=== PATIENT | male | born 1950 | race Caucasian/White ===

== ENCOUNTER 2020-06-25 08:36 | Emergency (ER) | payer MEDICARE, OTHER ==
[2020-06-25] MEDS ORDERED: DUONEB 0.5-3 MG/3 ml Neb IH ONE (09:22)
[2020-06-25] MEDS ORDERED: Sodium Chloride 0.9% 1000 ML 1,000 ML IV SCH (09:30)
--- NOTE | 2020-06-25 09:34 | ERPHSYRPT ---
- History of Present Illness Time Seen by Provider: 06/25/20 09:30 Source: patient Exam Limitations: no limitations Patient Subjective Stated Complaint: PT HERE FOR SOB FOR 3 WEEKS. PRODUCTIVE COUGH, NO FEVER, WEAKNESS Triage Nursing Assessment: PT ALERT, ARRRIVED PER WC, RESP LABORED, CHEST WITH WHEEZES. EDEMA TO LOWER LEGS WHICH IS NORMAL FOR HIM Physician History: 70-year-old male has significant history of hypertension and COPD for which he is not following with his primary care physician for routine care came to the emergency room with a history of 3 weeks shortness of breath. He could not breathe today so his daughter told him to come to the emergency room. In the emergency room patient was sent was short of breath but denies any fever chills vomiting Timing/Duration: week(s) Activities at Onset: activity Severity of Dyspnea-Max: moderate Possible Cause: frequent episodes Modifying Factors: Improves With: nothing Associated Symptoms: cough, wheezing, weakness, ankle swelling, leg swelling, No chills, No hemoptysis, No calf pain, No heaviness, No heart racing Allergies/Adverse Reactions: No Known Drug Allergies Allergy (Unverified 06/25/20 08:46) Home Medications: No Reportable Medications [No Reported Medications] 06/25/20 [History] Hx Influenza Vaccination/Date Given: Yes Hx Pneumococcal Vaccination/Date Given: No Immunizations Up to Date: Yes Travel Risk - International Travel Have you traveled outside of the country in past 3 weeks: No - Coronavirus Screening Are you exhibiting any of the following symptoms?: Yes Symptoms: Cough: New Onset, Headaches/Body Aches/Fatigue Close contact with a COVID-19 positive Pt in past 14-21 Days: No - Review of Systems Constitutional: No Fever, No Chills Eyes: No Symptoms Ears, Nose, & Throat: No Symptoms Respiratory: Cough, Dyspnea, Dyspnea on Exertion (KRISHNA), Wheezing Cardiac: No Chest Pain, No Edema, No Syncope Abdominal/Gastrointestinal: Nausea, No Abdominal Pain, No Vomiting, No Diarrhea Genitourinary Symptoms: No Dysuria Musculoskeletal: No Back Pain, No Neck Pain Skin: No Rash Neurological: No Dizziness, No Focal Weakness, No Sensory Changes Psychological: No Symptoms Endocrine: No Symptoms All Other Systems: Reviewed and Negative - Past Medical History Pertinent Past Medical History: No Respiratory History: Other Other Medical History: COLLASPED LUNG X2 - Past Surgical History Past Surgical History: Yes Musculoskeletal: Orthopedic Surgery Other Surgical History: HIP RIGHT - Social History Smoking Status: Former smoker Exposure to second hand smoke: No Drug Use: none Patient Lives Alone: No - Nursing Vital Signs Nursing Vital Signs: Initial Vital Signs Temperature 96 F 06/25/20 08:37 Pulse Rate 94 H 06/25/20 08:37 Respiratory Rate 28 H 06/25/20 08:37 Blood Pressure 168/107 06/25/20 08:37 O2 Sat by Pulse Oximetry 99 06/25/20 08:37 Pain Scale Pain Intensity 0 - Physical Exam General Appearance: no apparent distress, alert Eye Exam: PERRL/EOMI Neck Exam: normal inspection, supple Respiratory Exam: diminished breath sounds, crackles/rales, rhonchi, wheezing Cardiovascular/Chest Exam: normal heart sounds, regular rate/rhythm Abdominal/Gastrointestinal Exam: soft, No tenderness, No distention, No mass Extremity Exam: non-tender, normal range of motion, normal inspection, no calf tenderness, no pedal edema Neurologic Exam: alert, oriented x 3, cooperative, healthcare management consultant II-XII nml as tested, sensation nml, No motor deficits Skin Exam: normal color, warm, No dry SpO2 Interpretation: normal SpO2: 100 O2 Delivery: Room Air - Course Nursing assessment & vital signs reviewed: Yes EKG Interpreted by Me: Non-specific ST Changes - Radiology Exams Chest X-ray Interpretation: Reviewed by me (CHF changes, Pulmonary fibrosis) Ordered Tests: Active Orders 24 hr Category Date Time Status Continuity Editor STAT Care 06/25/20 09:24 Active EKG-ER Only STAT Care 06/25/20 09:22 Active IV Insertion STAT Care 06/25/20 11:23 Active Oxygen-ED Only Nasal Cannula 2 lpm Care 06/25/20 09:22 Active CHEST 2 VIEWS (PA AND LAT) Stat Exams 06/25/20 09:24 Taken BLOOD CULTURE Stat Lab 06/25/20 10:05 Received CBC W DIFF Stat Lab 06/25/20 10:05 Completed CMP Stat Lab 06/25/20 10:05 Completed D-DIMER QUANTITATIVE Stat Lab 06/25/20 10:05 Completed Lactic Acid Stat Lab 06/25/20 10:22 Completed MAGNESIUM Stat Lab 06/25/20 10:05 Completed NT PRO BNP Stat Lab 06/25/20 10:05 Completed TROPONIN Q3H Lab 06/25/20 10:05 Completed TROPONIN Q3H Lab 06/25/20 12:30 Ordered TROPONIN Q3H Lab 06/25/20 15:30 Ordered TROPONIN Q3H Lab 06/25/20 18:30 Ordered TROPONIN Q3H Lab 06/25/20 21:30 Ordered Respiratory MDI STAT RT 06/25/20 10:04 Active Respiratory Therapy Assessment DAILY RT 06/25/20 10:04 Active Medication Summary Generic Name Dose Route Start Last Admin Trade Name Freq PRN Reason Stop Dose Admin Sodium Chloride 1,000 mls @ 100 mls/hr 06/25/20 09:30 06/25/20 09:54 Sodium Chloride 0.9% 1000 Ml IV 07/25/20 09:29 100 mls/hr .Q10H DEIRDRE Administration Discontinued Medications Generic Name Dose Route Start Last Admin Trade Name Freq PRN Reason Stop Dose Admin Albuterol Sulfate 4 puff 06/25/20 10:02 06/25/20 09:40 Ventolin Common Canister IH 06/25/20 10:03 4 puff STAT ONE Administration Albuterol/Ipratropium 3 ml 06/25/20 09:22 06/25/20 10:33 Duoneb 0.5-3 Mg/3 Ml Neb IH 06/25/20 09:23 Not Given STAT ONE Lab/Rad Data: Laboratory Result Diagrams 06/25/20 10:05 06/25/20 10:05 Laboratory Results 06/25/20 06/25/20 06/25/20 Range/Units 10:22 10:05 10:05 WBC (4.0-10.5) K/mm3 RBC (4.1-5.6) M/mm3 Hgb (12.5-18.0) gm/dl Hct (42-50) % MCV (78-100) fl MCH (26-32) pg MCHC (32-36) g/dl RDW (11.5-14.0) % Plt Count (150-450) K/mm3 MPV (7.5-11.0) fl Gran % (36.0-66.0) % Eos # (Auto) (0-0.5) Absolute Lymphs (auto) (1.0-4.6) Absolute Monos (auto) (0.0-1.3) Lymphocytes % (24.0-44.0) % Monocytes % (0.0-12.0) % Eosinophils % (0.00-5.0) % Basophils % (0.0-0.4) % Absolute Granulocytes (1.4-6.9) Basophils # (0-0.4) D-Dimer 2640 H* (215-500) ng/mL Sodium (137-145) mmol/L Potassium (3.5-5.1) mmol/L Chloride (98-107) mmol/L Carbon Dioxide (22-30) mmol/L Anion Gap (5-15) MEQ/L BUN (9-20) mg/dL Creatinine (0.66-1.25) mg/dL Estimated GFR ML/MIN Glucose (74-106) mg/dL Lactic Acid 1.9 (0.4-2.0) Calcium (8.4-10.2) mg/dL Magnesium (1.6-2.3) mg/dL Total Bilirubin (0.2-1.3) mg/dL AST (17-59) U/L ALT (0-50) U/L Alkaline Phosphatase (38-126) U/L Troponin I 0.072 H* (0.000-0.034) ng/mL NT-Pro-B Natriuret Pep (0-900) pg/mL Serum Total Protein (6.3-8.2) g/dL Albumin (3.5-5.0) g/dL Influenza Type A Ag (NEGATIVE) Influenza Type B Ag (NEGATIVE) RSV (PCR) (Negative) SARS-CoV-2 (PCR) (NEGATIVE) 06/25/20 06/25/20 06/25/20 Range/Units 10:05 10:05 10:00 WBC 10.2 (4.0-10.5) K/mm3 RBC 4.10 (4.1-5.6) M/mm3 Hgb 13.2 (12.5-18.0) gm/dl Hct 39.7 L (42-50) % MCV 96.8 (78-100) fl MCH 32.2 H (26-32) pg MCHC 33.2 (32-36) g/dl RDW 14.5 H (11.5-14.0) % Plt Count 283 (150-450) K/mm3 MPV 9.2 (7.5-11.0) fl Gran % 79.9 H (36.0-66.0) % Eos # (Auto) 0.03 (0-0.5) Absolute Lymphs (auto) 1.29 (1.0-4.6) Absolute Monos (auto) 0.69 (0.0-1.3) Lymphocytes % 12.6 L (24.0-44.0) % Monocytes % 6.7 (0.0-12.0) % Eosinophils % 0.3 (0.00-5.0) % Basophils % 0.5 (0.0-0.4) % Absolute Granulocytes 8.18 H (1.4-6.9) Basophils # 0.05 (0-0.4) D-Dimer (215-500) ng/mL Sodium 135 L (137-145) mmol/L Potassium 3.8 (3.5-5.1) mmol/L Chloride 99 (98-107) mmol/L Carbon Dioxide 25 (22-30) mmol/L Anion Gap 13.8 (5-15) MEQ/L BUN 25 H (9-20) mg/dL Creatinine 1.34 H (0.66-1.25) mg/dL Estimated GFR 55.9 ML/MIN Glucose 165 H (74-106) mg/dL Lactic Acid (0.4-2.0) Calcium 8.9 (8.4-10.2) mg/dL Magnesium 2.2 (1.6-2.3) mg/dL Total Bilirubin 1.20 (0.2-1.3) mg/dL AST 69 H (17-59) U/L ALT 49 (0-50) U/L Alkaline Phosphatase 126 (38-126) U/L Troponin I (0.000-0.034) ng/mL NT-Pro-B Natriuret Pep 23315 H (0-900) pg/mL Serum Total Protein 7.0 (6.3-8.2) g/dL Albumin 3.8 (3.5-5.0) g/dL Influenza Type A Ag NEGATIVE (NEGATIVE) Influenza Type B Ag NEGATIVE (NEGATIVE) RSV (PCR) NEGATIVE (Negative) SARS-CoV-2 (PCR) NEGATIVE (NEGATIVE) - Progress Air Movement: fair Blood Culture(s) Obtained: No Antibiotics given: No Discussed with : Other ([facility] hospitalist) Will see patient in: hospital (full admit) Counseled pt/family regarding: lab results, diagnosis, need for follow-up, rad results - Departure Departure Disposition: Transfer ([facility]) Clinical Impression: Elevated troponin, Acute on chronic diastolic congestive heart failure, NYHA class 3, Non-ST elevation (NSTEMI) myocardial infarction, Elevated d-dimer, Pulmonary fibrosis Condition: Fair Critical Care Time: Yes Critical Care Time(excluding separately billable procedures): Critical 75-104 mins Referrals: STEPH JENKINS [CONSULTING PHYSICIAN] - RAMIRO HAYNES MD [Emergency Provider] - Instructions: Heart Failure
[2020-06-25] MEDS ORDERED: Sodium Chloride 0.9% 1000 ML 1,000 ML ONE (09:52)
[2020-06-25] MEDS ORDERED: VENTOLIN COMMON CANISTER IH ONE (10:02)
[2020-06-25 10:45] LABS: Absolute Neutrophil Ct (ANC) 8.18 (1.4-6.9); BASOPHIL % 0.5 % (0.0-0.4); Basophil (Absolute #) 0.05 (0-0.4); Eosinophil % 0.3 % (0.00-5.0); Eosinophil (Absolute #) 0.03 (0-0.5); Hematocrit 39.7 % (42-50); Hemoglobin 13.2 gm/dl (12.5-18.0); Lymphocyte (Absolute #) 1.29 (1.0-4.6); Lymphocytes % 12.6 % (24.0-44.0); Mean Cell Volume 96.8 fl (78-100); Mean Corpuscular Hemoglobin 32.2 pg (26-32); Mean Corpuscular Hgb Concent. 33.2 g/dl (32-36); Mean Platelet Volume 9.2 fl (7.5-11.0); Monocyte (Absolute #) 0.69 (0.0-1.3); Monocytes % 6.7 % (0.0-12.0); Neutrophil % 79.9 % (36.0-66.0); Platelet Count 283 K/mm3 (150-450); Red Cell Distribution Width 14.5 % (11.5-14.0); White Blood Count 10.2 K/mm3 (4.0-10.5)
[2020-06-25 11:04] VITALS: BP 147/99; O2SAT 100
[2020-06-25 11:09] LABS: ALBUMIN 3.8 g/dL (3.5-5.0); ANION GAP 13.8 MEQ/L (5-15); BILIRUBIN,TOTAL 1.2 mg/dL (0.2-1.3); Calcium 8.9 mg/dL (8.4-10.2); Creatinine 1 1.34 mg/dL (0.66-1.25); EST GLOMERULAR FILTRATION RATE 55.9 ML/MIN; MAGNESIUM 2.2 mg/dL (1.6-2.3); Potassium 3.8 mmol/L (3.5-5.1)
[2020-06-25 11:23] LABS: INFLUENZA A NEGATIVE (NEGATIVE); INFLUENZA B NEGATIVE (NEGATIVE); RESPIRATORY SYNCTIAL VIRUS NEGATIVE (Negative)
[2020-06-25 12:34] VITALS: PULSE 96
--- NOTE | 2020-06-25 18:16 | XRAY ---
Indication: Short of breath. Suspect COVID 19. Comparison: None PA/lateral chest demonstrates hazy interstial alveolar opacities with small effusion, left greater than right. Elsewhere COPD, biapical fibrosis/scarring, and right base calcified granuloma. Heart is not enlarged with scattered vascular calcifications. Bony thorax intact.
== END 2020-06-25 13:34 | disposition short-term general hospital (02) ==
LOC: ED 08:36
DX: R74.8 Abnormal levels of other serum enzymes (principal); I50.33 Acute on chronic diastolic (congestive) heart failure; I21.3 ST elevation (STEMI) myocardial infarction of unspecified site; R79.89 Other specified abnormal findings of blood chemistry; J84.10 Pulmonary fibrosis, unspecified; I10 Essential (primary) hypertension; R05 Cough
CPT/HCPCS: 80053; 83605; 83735; 83880; 84484; 85025; 85379; 87040; 87631; 93005; 93041; 94640; 99291; 99292; U0003; 36000; 36415; 71046; 99285